=== PATIENT | male | born 1990 | race Caucasian/White ===

== ENCOUNTER 2020-12-15 18:01 | Emergency (ER) | payer OTHER ==
[2020-12-15 18:12] VITALS: BP 149/92; PULSE 101; TEMP 98.5; BMI 47.2
[2020-12-15] MEDS ORDERED: KETOROLAC TROMETHAMINE 60 MG/2 ML VIAL IVPUSH ONE (18:49)
[2020-12-15] MEDS ORDERED: KETOROLAC TROMETHAMINE 60 MG/2 ML VIAL ONE (18:49)
[2020-12-15] MEDS ORDERED: KETOROLAC TROMETHAMINE 60 MG/2 ML VIAL IM ONE (18:50)
[2020-12-15] MEDS ORDERED: IBUPROFEN 600 MG TABLET (FP) PO ONE (19:42)
== END 2020-12-15 20:11 | disposition home or self-care (01) ==
LOC: JER 18:01 → JERFT 18:01
PROC: 3E0233Z Introduction of Anti-inflammatory into Muscle, Percutaneous Approach (ICD-10-PCS; principal; 2020-12-15)
PROC: 3E0333Z Introduction of Anti-inflammatory into Peripheral Vein, Percutaneous Approach (ICD-10-PCS; 2020-12-15)
DX: S62.336A Displaced fracture of neck of fifth metacarpal bone, right hand, initial encounter for closed fracture (principal)
CPT/HCPCS: 73130-TC-RT-FY; 73140-TC-RT-FY; 99284-25

== ENCOUNTER 2022-03-19 19:29 | Emergency (ER) | payer OTHER ==
[2022-03-19 20:17] VITALS: BP 142/91; PULSE 109; RESP 20; TEMP 98.9; BMI 47.2
== END 2022-03-19 22:05 | disposition home or self-care (01) ==
LOC: JER 19:29
DX: S93.402A Sprain of unspecified ligament of left ankle, initial encounter (principal); X50.0XXA Overexertion from strenuous movement or load, initial encounter
CPT/HCPCS: 73590-TC-LT-FY; 73610-TC-LT-FY; 73630-TC-LT; 99284-25